=== PATIENT | male | born 1970 | race Caucasian/White ===

== ENCOUNTER 2022-05-11 14:15 | Emergency (ER) | payer MEDICARE ==
[2022-05-11] MEDS ORDERED: Sodium Chloride 0.9% 10 ML Syringe FLUSH PRN (14:31)
[2022-05-11] MEDS: Sodium Chloride 0.9% 1,000 ML IV SCH (14:53)
[2022-05-11] MEDS: EPINEPHrine 1 MG/1 ML Amp IM ONE (14:54)
[2022-05-11] MEDS: methylPREDNISolone Sodium Succinate 125 MG/2 ML SDV IV ONE (14:57)
[2022-05-11] MEDS: Famotidine 20 MG Tab PO ONE (14:59)
[2022-05-11] MEDS: diphenhydrAMINE 50 MG/ML SDV IVPUSH ONE (15:00)
[2022-05-11 15:04] LABS: CHLORIDE,CL 98 mmol/L (98-107); SODIUM,NA 134 mmol/L (136-145)
[2022-05-11 15:05] LABS: ESTIMATED GFR 91 mL/min (>=60)
[2022-05-11] MEDS: Ketorolac 15 MG/ML SDV IVPUSH ONE (16:02)
== END 2022-05-11 16:45 | disposition home or self-care (01) ==
LOC: VM.ED 14:15
DX: L27.0 Generalized skin eruption due to drugs and medicaments taken internally (principal); T42.6X5A Adverse effect of other antiepileptic and sedative-hypnotic drugs, initial encounter; K21.9 Gastro-esophageal reflux disease without esophagitis; E11.9 Type 2 diabetes mellitus without complications; E66.9 Obesity, unspecified; Z68.30 Body mass index [BMI] 30.0-30.9, adult; Z88.8 Allergy status to other drugs, medicaments and biological substances; Z79.899 Other long term (current) drug therapy; Z79.84 Long term (current) use of oral hypoglycemic drugs
CPT/HCPCS: 80053; 85025; 96361; 96372; 96374; 96375; 99284-25; A9270-GY; J0171; J1200; J1885; J2930; J7030

== ENCOUNTER 2022-11-11 22:36 | Emergency (ER) | payer MEDICARE, MEDICAID ==
[2022-11-11] MEDS ORDERED: LORazepam 1 MG Tab PO ONE (23:04)
[2022-11-11 23:29] LABS: BASOPHILS PERCENT AUTO 0.2 % (0.2-1.2); EOSINOPHILS ABSOLUTE AUTO 0.1 x10^3/uL (0.0-0.5); EOSINOPHILS PERCENT AUTO 0.8 % (0.0-4.0); HEMATOCRIT 42.3 % (40.0-52.0); HEMOGLOBIN 14.5 g/dL (14.0-18.0); IMMATURE GRAN ABSOLUTE AUTO 0.06 x10^3/uL (0.00-0.07); LYMPHOCYTES ABSOLUTE AUTO 3.6 x10^3/uL (1.0-4.8); LYMPHOCYTES PERCENT AUTO 29.8 % (25.0-50.0); MEAN CORPUSCULAR HGB CONC 34.3 g/dL (32.0-36.0); MEAN CORPUSCULAR VOLUME 90.4 fL (78.0-93.0); MONOCYTES ABSOLUTE AUTO 0.9 x10^3/uL (0.0-0.8); MONOCYTES PERCENT AUTO 7.4 % (2.0-11.0); NEUTROPHILS ABSOLUTE AUTO 7.3 x10^3/uL (1.8-7.7); NEUTROPHILS PERCENT AUTO 61.3 % (50.0-80.0); PLATELET COUNT,PLT 288 x10^3/uL (130-400); RED BLOOD CELL COUNT 4.68 x10^6/uL (4.5-6.0)
[2022-11-11 23:50] LABS: A/G RATIO 1.23; ALANINE AMINOTRANSFERASE,ALT 48 U/L (16-63); ALBUMIN 3.8 g/dL (3.4-5.0); ALKALINE PHOSPHATASE 148 U/L (46-116); ASPARTATE AMNIOTRANSFERASE,AST 19 U/L (15-37); BILIRUBIN TOTAL 0.2 mg/dL (0.2-1.0); BLOOD UREA NITROGEN,BUN 17 mg/dL (7-18); C-REACTIVE PROTEIN 0.09 mg/dL (<=0.30); CALCIUM 8.7 mg/dL (8.5-10.1); CARBON DIOXIDE,CO2 22 mmol/L (21-32); CHLORIDE,CL 103 mmol/L (98-107); GLUCOSE RANDOM 281 mg/dL (70-99); MAGNESIUM 1.7 mg/dL (1.8-2.4); POTASSIUM,K 3.4 mmol/L (3.5-5.1); PROTEIN TOTAL,TP 6.9 g/dL (6.4-8.2); SODIUM,NA 139 mmol/L (136-145)
[2022-11-11 23:52] LABS: ANION GAP 17.4 mmol/L (5-15); ESTIMATED GFR 91 mL/min (>=60)
[2022-11-12 00:02] LABS: APPEARANCE,URINE CLEAR (CLEAR); BILIRUBIN,URINE NEGATIVE (NEGATIVE); COLOR,URINE YELLOW (YELLOW); GLUCOSE,URINE 500 mg/dL (NEGATIVE); KETONES,URINE 15 mg/dL (NEGATIVE); LEUKOCYTE ESTERASE,URINE NEGATIVE (NEGATIVE); NITRITE,URINE NEGATIVE (NEGATIVE); OCCULT BLOOD,URINE NEGATIVE (NEGATIVE); PROTEIN,URINE NEGATIVE (NEGATIVE); UROBILINOGEN,URINE 0.2 EU/dL (0.2)
[2022-11-12 00:07] LABS: AMPHETAMINES SCREEN, URINE NEGATIVE (NEGATIVE); BARBITURATE SCREEN,URINE NEGATIVE (NEGATIVE); BENZODIAZEPINES SCREEN,URINE NEGATIVE (NEGATIVE); BUPRENORPHINE SCREEN,URINE NEGATIVE (NEGATIVE); COCAINE METABOLITES,URINE NEGATIVE (NEGATIVE); METHADONE SCREEN, URINE NEGATIVE (NEGATIVE); METHAMPHETAMINE SCREEN, URINE NEGATIVE (NEGATIVE); OXYCODONE SCREEN,URINE NEGATIVE (NEGATIVE); PCP SCREEN,URINE NEGATIVE (NEGATIVE); THC SCREEN,URINE 50 NG/ML POSITIVE (NEGATIVE)
[2022-11-12] MEDS ORDERED: Acetaminophen 325 MG Tab PO ONE (00:22)
== END 2022-11-12 01:30 | disposition home or self-care (01) ==
LOC: VM.ED 22:36
DX: R51.9 Headache, unspecified (principal); K21.9 Gastro-esophageal reflux disease without esophagitis; E11.9 Type 2 diabetes mellitus without complications; E66.9 Obesity, unspecified; Z79.84 Long term (current) use of oral hypoglycemic drugs; Z79.899 Other long term (current) drug therapy; Z88.8 Allergy status to other drugs, medicaments and biological substances; Z68.31 Body mass index [BMI] 31.0-31.9, adult
CPT/HCPCS: 36415; 70450; 80053; 80305; 80307; 81003; 83735; 84484; 85025; 86140; 93005; 99284; A9270

== ENCOUNTER 2022-11-16 16:56 | Emergency (ER) | payer MEDICARE, MEDICAID | END 2022-11-16 17:49 | disposition home or self-care (01) | LOC: VM.ED 16:56 | DX: T63.441A Toxic effect of venom of bees, accidental (unintentional), initial encounter (principal); K21.9 Gastro-esophageal reflux disease without esophagitis; E11.9 Type 2 diabetes mellitus without complications; E66.9 Obesity, unspecified; Z79.84 Long term (current) use of oral hypoglycemic drugs; Z79.899 Other long term (current) drug therapy; Z88.8 Allergy status to other drugs, medicaments and biological substances; Z68.26 Body mass index [BMI] 26.0-26.9, adult | CPT/HCPCS: 99282 ==

== ENCOUNTER 2022-11-24 02:40 | Emergency (ER) | payer MEDICARE, MEDICAID | END 2022-11-24 03:13 | disposition home or self-care (01) | LOC: VM.ED 02:40 | DX: M54.12 Radiculopathy, cervical region (principal); K21.9 Gastro-esophageal reflux disease without esophagitis; E11.9 Type 2 diabetes mellitus without complications; E66.9 Obesity, unspecified; Z68.30 Body mass index [BMI] 30.0-30.9, adult; Z88.8 Allergy status to other drugs, medicaments and biological substances; Z79.84 Long term (current) use of oral hypoglycemic drugs; Z79.899 Other long term (current) drug therapy | CPT/HCPCS: 99283 ==

== ENCOUNTER 2022-12-11 20:56 | Emergency (ER) | payer MEDICARE, MEDICAID | END 2022-12-11 21:54 | disposition home or self-care (01) | LOC: VM.ED 20:56 | DX: R07.81 Pleurodynia (principal); F41.9 Anxiety disorder, unspecified; M62.838 Other muscle spasm; K21.9 Gastro-esophageal reflux disease without esophagitis; E11.9 Type 2 diabetes mellitus without complications; E66.9 Obesity, unspecified; Z68.29 Body mass index [BMI] 29.0-29.9, adult; Z79.84 Long term (current) use of oral hypoglycemic drugs; Z79.899 Other long term (current) drug therapy; Z88.8 Allergy status to other drugs, medicaments and biological substances | CPT/HCPCS: 93005; 99284 ==

== ENCOUNTER 2023-10-27 16:56 | Emergency (ER) | payer MEDICARE, MEDICAID | END 2023-10-27 17:50 | disposition home or self-care (01) | LOC: VM.ED 16:56 | DX: E11.65 Type 2 diabetes mellitus with hyperglycemia (principal); K21.9 Gastro-esophageal reflux disease without esophagitis; Z88.8 Allergy status to other drugs, medicaments and biological substances; Z79.51 Long term (current) use of inhaled steroids; Z79.899 Other long term (current) drug therapy; Z79.84 Long term (current) use of oral hypoglycemic drugs | CPT/HCPCS: 82947; 99284 ==

== ENCOUNTER 2024-08-05 05:07 | Emergency (ER) | payer MEDICARE, MEDICAID ==
[2024-08-05] MEDS: Ibuprofen 200 MG Tab PO ONE (05:25)
== END 2024-08-05 05:30 | disposition home or self-care (01) ==
LOC: VM.ED 05:07
DX: S63.502A Unspecified sprain of left wrist, initial encounter (principal); K21.9 Gastro-esophageal reflux disease without esophagitis; E11.9 Type 2 diabetes mellitus without complications; E66.9 Obesity, unspecified; F17.200 Nicotine dependence, unspecified, uncomplicated; Z79.899 Other long term (current) drug therapy; Z79.84 Long term (current) use of oral hypoglycemic drugs; Z88.8 Allergy status to other drugs, medicaments and biological substances; X50.9XXA Other and unspecified overexertion or strenuous movements or postures, initial encounter
CPT/HCPCS: 99283; A9270-GY

== ENCOUNTER 2024-10-24 10:39 | Emergency (ER) | payer MEDICARE, MEDICAID ==
[2024-10-24] MEDS ORDERED: Sodium Chloride 0.9% 10 ML Syringe FLUSH PRN (11:03)
[2024-10-24 11:11] LABS: BASOPHILS ABSOLUTE AUTO 0.0 x10^3/uL (0.0-0.2); BASOPHILS PERCENT AUTO 0.3 % (0.2-1.2); EOSINOPHILS ABSOLUTE AUTO 0.1 x10^3/uL (0.0-0.5); EOSINOPHILS PERCENT AUTO 1.1 % (0.0-4.0); IMMATURE GRAN ABSOLUTE AUTO 0.05 x10^3/uL (0.00-0.07); IMMATURE GRAN PERCENT AUTO 0.50 % (0.00-0.43); LYMPHOCYTES ABSOLUTE AUTO 2.4 x10^3/uL (1.0-4.8); LYMPHOCYTES PERCENT AUTO 23.5 % (25.0-50.0); MONOCYTES ABSOLUTE AUTO 0.9 x10^3/uL (0.0-0.8); MONOCYTES PERCENT AUTO 8.9 % (2.0-11.0); NEUTROPHILS ABSOLUTE AUTO 6.8 x10^3/uL (1.8-7.7); NEUTROPHILS PERCENT AUTO 65.7 % (50.0-80.0); PLATELET COUNT,PLT 260 x10^3/uL (130-400); RED BLOOD CELL COUNT 5.28 x10^6/uL (4.5-6.0); WHITE BLOOD CELL COUNT,WBC 10.3 x10^3/uL (4.0-10.0)
[2024-10-24 11:34] LABS: A/G RATIO 1.27; ALANINE AMINOTRANSFERASE,ALT 130 U/L (16-63); ASPARTATE AMNIOTRANSFERASE,AST 73 U/L (15-37); BILIRUBIN TOTAL 0.5 mg/dL (0.2-1.0); BLOOD UREA NITROGEN,BUN 20 mg/dL (7-18); CARBON DIOXIDE,CO2 25 mmol/L (21-32); CHLORIDE,CL 98 mmol/L (98-107); CREATINE KINASE,CK 184 U/L (39-308); CREATININE 1.2 mg/dL (0.70-1.30); EST CRCL DRUG DOSING (CG) 65.79 mL/min; GLUCOSE RANDOM 382 mg/dL (70-99); POTASSIUM,K 4.4 mmol/L (3.5-5.1); PROTEIN TOTAL,TP 7.5 g/dL (6.4-8.2); SODIUM,NA 135 mmol/L (136-145)
[2024-10-24 11:36] LABS: ESTIMATED GFR 72 mL/min (>=60)
== END 2024-10-24 12:24 | disposition home or self-care (01) ==
LOC: VM.ED 10:39
DX: I10 Essential (primary) hypertension (principal); E11.65 Type 2 diabetes mellitus with hyperglycemia; F41.9 Anxiety disorder, unspecified; K21.9 Gastro-esophageal reflux disease without esophagitis; E66.9 Obesity, unspecified; Z68.28 Body mass index [BMI] 28.0-28.9, adult; Z88.8 Allergy status to other drugs, medicaments and biological substances; Z79.51 Long term (current) use of inhaled steroids; Z79.84 Long term (current) use of oral hypoglycemic drugs; Z79.899 Other long term (current) drug therapy
CPT/HCPCS: 36415; 70450; 71045; 80053; 82550; 84484; 85025; 86140; 93005; 99284

== ENCOUNTER 2024-10-25 14:37 | Emergency (ER) | payer MEDICARE, MEDICAID | END 2024-10-25 19:16 | disposition home or self-care (01) | LOC: VM.ED 14:37 | DX: I10 Essential (primary) hypertension (principal); K04.7 Periapical abscess without sinus; E11.9 Type 2 diabetes mellitus without complications; K21.9 Gastro-esophageal reflux disease without esophagitis; Z79.899 Other long term (current) drug therapy; Z79.84 Long term (current) use of oral hypoglycemic drugs | CPT/HCPCS: 64400; 82947; 99284; 99284-25; A9270-GY; J0665 ==